=== PATIENT | male | born 1995 | race Caucasian/White ===

== ENCOUNTER 2018-03-31 15:13 | Emergency (ER) | payer BC ==
[2018-03-31 15:32] VITALS: TEMP 99.1
--- NOTE | 2018-03-31 16:17 | RAD ---
PROCEDURE: Left Hand Radiographs. HISTORY: fall on hand, pain swelling thenar eminence COMPARISON: None. FINDINGS: BONES: Bone alignment and mineralization are normal. There is no acute displaced fracture or bone destruction. JOINTS: Normal. SOFT TISSUES: Normal. OTHER FINDINGS: None. IMPRESSION: No acute fracture or dislocation.
--- NOTE | 2018-03-31 16:18 | RAD ---
Date of service: 03/31/2018 PROCEDURE: Left Knee Radiographs. HISTORY: Pain. COMPARISON: None. FINDINGS: BONES: Bone alignment and mineralization are normal. There is no acute displaced fracture or bone destruction. JOINTS: Normal. JOINT EFFUSION: None. OTHER FINDINGS: None. IMPRESSION: No acute fracture or dislocation.
--- NOTE | 2018-03-31 16:39 | C.PDOC ---
History Of Present Illness 22 year old male presents to the emergency department status-post twisting his left knee while playing basketball [employer]. Patient states that he went up for a layup and twisted his knee, then fell, landing on outstretched hands. pt did not hit head, denies neck pain. patient states that he has difficulty bearing weight, and reports pain to the the palm of his left hand. He denies wrist pain. Time Seen by Provider: 03/31/18 15:40 Chief Complaint (Nursing): Lower Extremity Problem/Injury History Per: Patient History/Exam Limitations: no limitations Onset/Duration Of Symptoms: Hrs Current Symptoms Are (Timing): Still Present - Knee Description Of Injury: Twisted (while landing) Currently Unable To: Bear Weight Past Medical History Reviewed: Historical Data, Nursing Documentation, Vital Signs Vital Signs: Last Vital Signs Temp 99.1 F 03/31/18 15:30 Pulse 68 03/31/18 16:53 Resp 20 03/31/18 16:53 BP 128/72 03/31/18 16:53 Pulse Ox 97 04/02/18 21:12 - Medical History PMH: No Chronic Diseases Denies: Chronic Kidney Disease Surgical History: No Surg Hx Family History: States: No Known Family Hx - Social History Hx Alcohol Use: No Hx Substance Use: No - Immunization History Hx Tetanus Toxoid Vaccination: No Hx Influenza Vaccination: No Hx Pneumococcal Vaccination: No Review Of Systems Musculoskeletal: Positive for: Hand Pain (left), Leg Pain (left knee). Negative for: Neck Pain Skin: Negative for: Bruising Neurological: Negative for: Weakness, Numbness Physical Exam - Physical Exam Appears: Non-toxic, No Acute Distress Skin: Warm, Dry Head: Atraumatic, Normacephalic Eye(s): bilateral: Normal Inspection Neck: No Midline Cervical Tenderness, Supple Chest: No Tenderness Extremity: Normal ROM (all extremities, painful rom left knee), Tenderness (tenderness to the left thenar eminence, diffuse tenderness to the left knee. neg anterior and posterior drawer test), Swelling (to the left thenar eminence, minimal swelling to the left knee) Pulses: Left Radial: Normal, Right Radial: Normal, Left Dorsalis Pedis: Normal, Right Dorsalis Pedis: Normal Neurological/Psych: Oriented x3, Normal Speech, Normal Cognition ED Course And Treatment O2 Sat by Pulse Oximetry: 97 (RA) Pulse Ox Interpretation: Normal - Other Rad XR Left Knee X-Ray: Interpreted by Me, Viewed By Me Interpretation: Negative for fractures and dislocations. XR Left Hand X-Ray: Interpreted by Me, Viewed By Me Interpretation: Negative for fractures and dislocations. Progress Note: Plan: XR Hand. XR Knee. Toradol 30mg IM. Knee brace applied, patient instructed to follow-up with orthopedics. Disposition Counseled Patient/Family Regarding: Studies Performed, Diagnosis, Need For Followup - Disposition Referrals: Sada Park MD [Staff Provider] - Disposition: HOME/ ROUTINE Disposition Time: 16:40 Condition: GOOD Additional Instructions: Please wear knee brace for support and use crutches to decrease weight bearing on left knee. Cold compresses to left knee for 20 minutes at a time every 3-4 hours. Ibuprofen for pain, follow up with Dr Park or orthopedist or your choice in the next week preferably. 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 - Scribe Statement The provider has reviewed the documentation as recorded by the Scribe (Robert Samson) All medical record entries made by the Scribe were at my direction and personally dictated by me. I have reviewed the chart and agree that the record accurately reflects my personal performance of the history, physical exam, medical decision making, and the department course for this patient. I have also personally directed, reviewed, and agree with the discharge instructions and disposition.
[2018-03-31 16:54] VITALS: BP 128/72; PULSE 68; RESP 20
[2018-03-31 17:44] VITALS: O2SAT 97
== END 2018-03-31 16:54 | disposition home or self-care (01) ==
LOC: C.ER 15:13
DX: S83.92XA Sprain of unspecified site of left knee, initial encounter (principal); X50.9XXA Other and unspecified overexertion or strenuous movements or postures, initial encounter; Y93.67 Activity, basketball
CPT/HCPCS: 73130; 73562; 96372; 99284; J1885